=== PATIENT | male | born 1985 | race American Indian/Alaskan Native ===

== ENCOUNTER 2017-06-03 23:55 | Emergency (ER) | payer SELFPAY ==
[2017-06-04 01:36] LABS: Urine Drugs of Abuse Note Disclamer
[2017-06-04 01:44] LABS: Bilirubin,Urine NEG (Negative); Blood,Urine NEG (Negative); Ketones,Urine NEG (Negative); Leukocyte Esterase,Urine NEG (Negative); Nitrite,Urine NEG (Negative); Protein,Urine <15 mg/dL mg/dL (Negative); Urobilinogen,Urine < 2.0 mg/dL (<2.0); WBC,Urine < 1.0 /HPF (0.0-6.0)
[2017-06-04 01:57] LABS: Anion Gap 17 mmol/L; Blood Urea Nitrogen 7 mg/dL (9-20); Calcium 9.6 mg/dL (8.4-10.2); Carbon Dioxide 28 mmol/L (22-30); Chloride 98.6 mmol/L (98-107); Glucose 88 mg/dL (75-100); Potassium 4.6 mmol/L (3.6-5.0); Sodium 139 mmol/L (137-145)
[2017-06-04 02:13] LABS: Basophils % (Auto) 0.9 % (0.0-1.8); Eosinophils % (Auto) 2.4 % (0.0-4.3); Mean Corpuscular HGB Conc 34 % (32-34); Mean Corpuscular Hemoglobin 31 pg (28-32); Mean Corpuscular Volume 90 fl (84-94); Platelet Count 251 K/mm3 (140-440); Red Blood Count 4.54 M/mm3 (3.65-5.03); Red Cell Distribution Width 12.6 % (13.2-15.2); White Blood Count 7.3 K/mm3 (4.5-11.0)
[2017-06-04] MEDS ORDERED: ZOFRAN ODT PO PRN (04:28)
[2017-06-04] MEDS ORDERED: IMODIUM PO PRN (04:29)
[2017-06-04] MEDS ORDERED: MILK OF MAGNESIA PO PRN (04:56)
[2017-06-04] MEDS ORDERED: ALUM-MAG HYDROX-SIMETH 200-200-20MG/5ML PO PRN (04:56)
[2017-06-04] MEDS ORDERED: TYLENOL PO PRN (04:56)
--- NOTE | 2017-06-04 04:56 | Emergency Department Report ---
ED Psych HPI - General Chief Complaint: Psych Stated Complaint: WITHDRAWAL Source: patient Mode of arrival: Ambulatory Limitations: No Limitations - History of Present Illness Initial Comments: 31-year-old male with a past medical history of substance abuse presents to the hospital complains of heroin withdrawal and suicidal ideation. Last use was 4 AM yesterday morning. Patient uses about 2 g a day. He complains of some nausea, intermittent vomiting, intermittent diarrhea. Patient complained of generalized 6/10 pain and 4/10 abdominal pain after triage patient is pain-free at this time. History of previous suicide attempt via overdose in the past. Plan today is hang himself or cut himself with a knife. Patient denies hallucinations or psychiatric diagnosis. - Related Data Home Medications Medication Instructions Recorded Confirmed Last Taken No Known Home Medications [No 06/04/17 06/04/17 Unknown Reported Home Medications] Allergies Allergy/AdvReac Type Severity Reaction Status Date / Time shellfish derived Allergy Swelling Verified 06/04/17 00:21 ED Review of Systems ROS: Stated complaint: WITHDRAWAL Other details as noted in HPI Comment: All other systems reviewed and negative Other: Constitutional: No fevers chills Eyes: No eye pain visual changes ENT: No ear pain or throat pain Neck: Denies pain Respiratory: Denies cough wheezing shortness of breath Cardiovascular: Denies chest pain, palpitations, syncope GI: As per HPI : Denies dysuria Musculoskeletal: Denies back pain Skin: Denies rash, lesions, erythema Neurologic: Denies headache, numbness, weakness Psychiatric: As per HPI ED Past Medical Hx - Past Medical History Previous Medical History?: No - Surgical History Past Surgical History?: Yes Additional Surgical History: right foot - Social History Smoking Status: Current Every Day Smoker Substance Use Type: Alcohol, Heroin, Marijuana, Prescribed - Medications Home Medications: Home Medications Medication Instructions Recorded Confirmed Last Taken Type No Known Home Medications [No 06/04/17 06/04/17 Unknown History Reported Home Medications] ED Physical Exam - General Limitations: No Limitations - Other Other exam information: General: No limitations, patient is alert in no acute distress Head exam: Atraumatic, normocephalic Eyes exam: Normal appearance, pupils equal reactive to light, extraocular movements intact ENT: Moist mucous membrane, normal oropharynx Neck exam: Normal inspection, full range of motion, no meningismus nontender Respiratory exam: Clear to auscultation bilateral, no wheezes, rales, crackles Cardiovascular: Normal rate and rhythm, normal heart sounds Abdomen: Soft, nondistended, and nontender, with normal bowel sounds, no rebound, or guarding Extremity: Full range of motion normal inspection no deformity Back: Normal Inspection, full range of motion, no tenderness Neurologic: Alert, oriented x3, cranial nerves intact, no motor or sensory deficit Psychiatric: normal affect, normal mood Skin: Warm, dry, intact ED Course Vital Signs 06/04/17 06/04/17 00:14 03:49 Temperature 98.6 F 98.3 F Pulse Rate 69 71 Respiratory 18 16 Rate Blood Pressure 143/102 Blood Pressure 150/103 [Right] O2 Sat by Pulse 100 100 Oximetry - Reevaluation(s) Reevaluation #1: 06/04/17 04:55 Patient declined any medication for nausea vomiting or diarrhea at this time. When necessary doses have been ordered ED Medical Decision Making - Lab Data Result diagrams: 06/04/17 00:27 06/04/17 00:27 - Medical Decision Making 1013 and transfer forms have been signed. Patient medically clear for psychiatric admission - Differential Diagnosis suicidal ideation, substance abuse, heroin withdrawal, psychiatric disorder Critical Care Time: No Critical care attestation.: If time is entered above; I have spent that time in minutes in the direct care of this critically ill patient, excluding procedure time. ED Disposition Clinical Impression: Heroin abuse, Suicidal ideation, Noncompliance with medication regimen Disposition: [id number]/TX-65 PSY HOSP/PSY UNIT Is pt being admited?: No Does the pt Need Aspirin: No Condition: Stable Time of Disposition: 04:56 (awaiting acceptance)
[2017-06-04] MEDS ORDERED: ATIVAN PO ONE (13:22)
[2017-06-04] MEDS ORDERED: ATIVAN ONE (18:34)
[2017-06-04] MEDS: ATIVAN PO PRN ×2 (18:38→23:40)
--- NOTE | 2017-06-04 20:33 | Consultation ---
History of Present Illness - Reason for Consult Consult date: 06/04/17 Reason for consult: Mental Health Evaluation Requesting physician: SALVATORE GERMAIN - Chief Complaint Chief complaint: "I just some help, I am not suicidal" - History of Present Psychiatric Illness 31-year-old male with a past medical history of substance abuse presents to the hospital complains of heroin withdrawal and suicidal ideation. Today patient is calm and cooperative during assessment. Patient admitted that he isn't suicidal. He felt like if he stated that he was suicidal he would get help immediately for his addiction. He started using heroin 5 yrs ago when he broke his ankle and was prescribe oxycodone for pain. He stated that he was introduced to heroin by a friend since his doctor would not prescribe oxycodone after so many prescriptions. He stated failing multiple rehab programs, but is adamant about completing one now. He denies SI/HI's, AVH's, and depression. He denies excessive alcohol consumption (etoh). He stated that he smoke marijuana often. He stated that he last used heroin 2 to 3 days ago. Patient just moved to the [facility] from [facility]. Medications and Allergies Allergies Allergy/AdvReac Type Severity Reaction Status Date / Time shellfish derived Allergy Swelling Verified 06/04/17 00:21 Home Medications Medication Instructions Recorded Confirmed Last Taken Type No Known Home Medications [No 06/04/17 06/04/17 Unknown History Reported Home Medications] Active Meds: Active Medications Acetaminophen (Tylenol) 650 mg PO Q4HR PRN PRN Reason: Pain MILD(1-3)/Fever >100.5/LEA Last Admin: 06/04/17 10:24 Dose: 650 mg Al Hydrox/Mg Hydrox/Simethicone (Alum-Mag Hydrox-Simeth 457-215-60sr/5ml) 30 ml PO Q4HR PRN PRN Reason: Indigestion Loperamide HCl (Imodium) 2 mg PO Q4HR PRN PRN Reason: Diarrhea Lorazepam (Ativan) 1 mg PO Q4HR PRN PRN Reason: Anxiety Last Admin: 06/04/17 18:38 Dose: 1 mg Magnesium Hydroxide (Milk Of Magnesia) 30 ml PO Q12HR PRN PRN Reason: Constipation Ondansetron HCl (Zofran Odt) 4 mg PO Q6HR PRN PRN Reason: Nausea And Vomiting Last Admin: 06/04/17 10:24 Dose: 4 mg Past psychiatric history - Past Medical History Past Surgical History: Other (R ankle surgery) - past Psychiatric treatment and history psychiatric treatment history: Patient been to multiple rehab services for heroin addiction. Denies a fam psy hx. - Social History Social history: lives with family, other ( [place]) Mental Status Exam - Vital signs Last Vital Signs Temp 98.5 F 06/04/17 09:52 Pulse 70 06/04/17 09:52 Resp 18 06/04/17 10:24 BP 119/79 06/04/17 09:52 Pulse Ox 100 06/04/17 09:53 - Exam Narrative exam: ROS: (-) depression MSE: Appearance: calm, cooperative Behavior: regular eye contact Speech: regular rate and tone Mood: "okay I guess" Affect: congruent to mood Thought Process: linear Thought Content: denies SI/HI's and AVH's Motor Activity: ambulatory Cognition: A/Ox 3 Insight: fair Judgment: fair Results Result Diagrams: 06/04/17 00:27 06/04/17 00:27 Abnormal lab results 06/04/17 06/04/17 Range/Units 00:27 00:27 RDW 12.6 L (13.2-15.2) % BUN 7 L (9-20) mg/dL Creatinine 0.7 L (0.8-1.5) mg/dL All other labs normal. Assessment and Plan Assessment and plan: Impression: Historical Dx: Substance Use DO (Heroin). Today patient is calm and cooperative during assessment. UDS negative for Opiates, but positive for marijuana. Patient reports nausea. DDx: R/O Mood DO Recommendation/Plan: Evaluate 1013 in 24 hours to determine proper dispo. Monitor for opiate withdrawals. Recommend rehab services once discharged. Discussed the importance to abstain from recreational drug use with patient.
[2017-06-05] MEDS ORDERED: BENADRYL PO ONE ×2 (00:01)
[2017-06-05] MEDS: ATIVAN PO PRN (08:54)
[2017-06-05 12:59] VITALS: BP 152/91
--- NOTE | 2017-06-05 13:02 | Progress Note ---
Subjective - Reason for Consult Consult date: 06/05/17 Reason for consult: Psychiatry Follow-up - Chief Complaint Chief complaint: "I am ready to get better" 31-year-old male with a past medical history of substance abuse presents to the hospital complains of heroin withdrawal and suicidal ideation. Today patient is calm and cooperative during assessment. He stated that he look forward to rehab services and plan to complete the program. Patient is adamant about getting his life on track and staying clean (off illicit drugs). He denies SI/HI's, AVH's, and depression. Mental Status Exam - Vital signs Last Vital Signs Temp 98.6 F 06/05/17 08:15 Pulse 88 06/05/17 08:15 Resp 20 06/05/17 12:55 BP 152/91 06/05/17 08:15 Pulse Ox 98 06/05/17 12:55 - Exam Narrative exam: MSE: Appearance: calm, cooperative Behavior: regular eye contact Speech: regular rate and tone Mood: "my mind is clear" Affect: congruent to mood Thought Process: linear Thought Content: denies SI/HI's and AVH's Motor Activity: ambulatory Cognition: A/Ox 3 Insight: fair Judgment: fair Assessment and Plan Impression: Historical Dx: Substance Use DO (Heroin). Today patient is calm and cooperative during assessment. No acute withdrawals noted (opioids). Patient is no threat to self or others. Recommendation/Plan: Rescind 1013. Patient given outpatient rehab services to [facility]. Discussed the importance to abstain from recreational drug use with patient.
--- NOTE | 2017-06-05 14:13 | Event Note ---
Date: 06/05/17 The patient's 1013 has been discontinued. He is not homicidal or suicidal. He does not have any complaints at this time. He is alert and oriented 3, and he has a GCS of 15, with an NIH score is 0. He is clinically sober at this time. He will be discharged at this time. Return precautions are reviewed. His physical exam is unremarkable and he walks with a steady gait. Vital Signs 06/04/17 06/04/17 06/04/17 00:14 03:49 05:39 Temperature 98.6 F 98.3 F Pulse Rate 69 71 68 Respiratory 18 16 16 Rate Blood Pressure 143/102 Blood Pressure 150/103 113/67 [Right] O2 Sat by Pulse 100 100 100 Oximetry 06/04/17 06/04/17 06/04/17 07:30 09:52 09:53 Temperature 98 F 98.5 F Pulse Rate 74 70 Respiratory 16 18 18 Rate Blood Pressure Blood Pressure 138/90 119/79 [Right] O2 Sat by Pulse 98 100 100 Oximetry 06/04/17 06/04/17 06/05/17 10:24 20:41 08:15 Temperature 98.6 F 98.6 F Pulse Rate 81 88 Respiratory 18 14 20 Rate Blood Pressure Blood Pressure 135/85 152/91 [Right] O2 Sat by Pulse 98 98 Oximetry 06/05/17 12:55 Temperature Pulse Rate Respiratory 20 Rate Blood Pressure Blood Pressure [Right] O2 Sat by Pulse 98 Oximetry Lab Results 06/04/17 06/04/17 06/04/17 Range/Units 00:27 00:27 00:27 WBC 7.3 (4.5-11.0) K/mm3 RBC 4.54 (3.65-5.03) M/mm3 Hgb 14.0 (11.8-15.2) gm/dl Hct 41.0 (35.5-45.6) % MCV 90 (84-94) fl MCH 31 (28-32) pg MCHC 34 (32-34) % RDW 12.6 L (13.2-15.2) % Plt Count 251 (140-440) K/mm3 Lymph % (Auto) 32.4 (13.4-35.0) % Ashley % (Auto) 4.9 (0.0-7.3) % Eos % (Auto) 2.4 (0.0-4.3) % Baso % (Auto) 0.9 (0.0-1.8) % Lymph # 2.4 (1.2-5.4) K/mm3 Ashley # 0.4 (0.0-0.8) K/mm3 Eos # 0.2 (0.0-0.4) K/mm3 Baso # 0.1 (0.0-0.1) K/mm3 Seg Neutrophils % 59.4 (40.0-70.0) % Seg Neutrophils # 4.4 (1.8-7.7) K/mm3 Sodium 139 (137-145) mmol/L Potassium 4.6 (3.6-5.0) mmol/L Chloride 98.6 (98-107) mmol/L Carbon Dioxide 28 (22-30) mmol/L Anion Gap 17 mmol/L BUN 7 L (9-20) mg/dL Creatinine 0.7 L (0.8-1.5) mg/dL Estimated GFR > 60 ml/min BUN/Creatinine Ratio 10.00 % Glucose 88 (75-100) mg/dL Calcium 9.6 (8.4-10.2) mg/dL Urine Color (Yellow) Urine Turbidity (Clear) Urine pH (5.0-7.0) Ur Specific Forman (1.003-1.030) Urine Protein (Negative) mg/dL Urine Glucose (UA) (Negative) mg/dL Urine Ketones (Negative) mg/dL Urine Blood (Negative) Urine Nitrite (Negative) Urine Bilirubin (Negative) Urine Urobilinogen (<2.0) mg/dL Ur Leukocyte Esterase (Negative) Urine WBC (Auto) (0.0-6.0) /HPF Urine RBC (Auto) (0.0-6.0) /HPF U Epithel Cells (Auto) (0-13.0) /HPF Urine Opiates Screen Urine Methadone Screen Ur Barbiturates Screen Ur Phencyclidine Scrn Ur Amphetamines Screen U Benzodiazepines Scrn Urine Cocaine Screen U Marijuana (THC) Screen Drugs of Abuse Note Plasma/Serum Alcohol < 0.01 (0-0.07) gm% 06/04/17 06/04/17 Range/Units 01:24 01:24 WBC (4.5-11.0) K/mm3 RBC (3.65-5.03) M/mm3 Hgb (11.8-15.2) gm/dl Hct (35.5-45.6) % MCV (84-94) fl MCH (28-32) pg MCHC (32-34) % RDW (13.2-15.2) % Plt Count (140-440) K/mm3 Lymph % (Auto) (13.4-35.0) % Ashley % (Auto) (0.0-7.3) % Eos % (Auto) (0.0-4.3) % Baso % (Auto) (0.0-1.8) % Lymph # (1.2-5.4) K/mm3 Ashley # (0.0-0.8) K/mm3 Eos # (0.0-0.4) K/mm3 Baso # (0.0-0.1) K/mm3 Seg Neutrophils % (40.0-70.0) % Seg Neutrophils # (1.8-7.7) K/mm3 Sodium (137-145) mmol/L Potassium (3.6-5.0) mmol/L Chloride (98-107) mmol/L Carbon Dioxide (22-30) mmol/L Anion Gap mmol/L BUN (9-20) mg/dL Creatinine (0.8-1.5) mg/dL Estimated GFR ml/min BUN/Creatinine Ratio % Glucose (75-100) mg/dL Calcium (8.4-10.2) mg/dL Urine Color Yellow (Yellow) Urine Turbidity Clear (Clear) Urine pH 7.0 (5.0-7.0) Ur Specific [place] 1.012 (1.003-1.030) Urine Protein <15 mg/dl (Negative) mg/dL Urine Glucose (UA) Neg (Negative) mg/dL Urine Ketones Neg (Negative) mg/dL Urine Blood Neg (Negative) Urine Nitrite Neg (Negative) Urine Bilirubin Neg (Negative) Urine Urobilinogen < 2.0 (<2.0) mg/dL Ur Leukocyte Esterase Neg (Negative) Urine WBC (Auto) < 1.0 (0.0-6.0) /HPF Urine RBC (Auto) 3.0 (0.0-6.0) /HPF U Epithel Cells (Auto) < 1.0 (0-13.0) /HPF Urine Opiates Screen Presumptive negative Urine Methadone Screen Presumptive negative Ur Barbiturates Screen Presumptive negative Ur Phencyclidine Scrn Presumptive negative Ur Amphetamines Screen Presumptive negative U Benzodiazepines Scrn Presumptive negative Urine Cocaine Screen Presumptive negative U Marijuana (THC) Screen Presumptive positive Drugs of Abuse Note Disclamer Plasma/Serum Alcohol (0-0.07) gm%
== END 2017-06-05 14:56 | disposition home or self-care (01) ==
LOC: ED 23:55 → EEVIPCON 23:55 → ED 06-05 14:56
DX: R45.851 Suicidal ideations (principal); F11.10 Opioid abuse, uncomplicated; F17.200 Nicotine dependence, unspecified, uncomplicated; F12.10 Cannabis abuse, uncomplicated; Z91.013 Allergy to seafood
CPT/HCPCS: 36415; 80048; 80307; 81001; 85025; 99284; G0480; 80320; 99285; Q0162